=== PATIENT | female | born 1945 | race African-American/Black ===

== ENCOUNTER 2020-10-30 22:35 | Inpatient (IN) | payer OTHER ==
[~2020-10-30] VITALS: Ht 157.5 cm; Wt 57.0 kg
[2020-10-30] MEDS ORDERED: SODIUM CHLORIDE 0.9% 1,000 ML IV ONE (23:00)
[2020-10-30 23:40] LABS: Hemoglobin 12.8 g/dL (12.2-16.2); Mean Corpuscular Hemoglobin 30.3 pg (28.0-32.0); Nucleated Red Blood Cells % 0.1 %
[2020-10-30 23:43] LABS: Basophils # (auto) 0.1 10 ^3/uL (0-0.2); Basophils % (auto) 1.2 % (0.0-2.0); Eosinophils # (auto) 0.1 10 ^3/uL (0-0.8); Eosinophils % (auto) 0.6 % (0.0-7.0); Hematocrit 37.9 % (36.0-46.0); Lymphocytes # (auto) 2.4 10 ^3/uL (0.4-5.4); Lymphocytes % (auto) 24.3 % (10.0-50.0); Mean Corpuscular Hgb Conc. 33.7 g/dL (32.0-36.0); Mean Corpuscular Volume 89.8 fL (80.0-100.0); Monocytes # (auto) 0.6 10 ^3/uL (0-1.3); Monocytes % (auto) 5.9 % (0.0-12.0); Neutrophils # (auto) 6.7 10 ^3/uL (1.6-8.6); Red Blood Cells 4.22 10^6/uL (4.0-5.20); Red Cell Distribution Width 14.8 % (11.8-14.3); White Blood Cell 9.8 10^3/uL (4.4-10.8)
[2020-10-30 23:51] LABS: Albumin 3.3 g/dL (3.4-5.0); BUN/Creatinine Ratio 14.8; Calcium 8.9 mg/dL (8.5-10.1); Magnesium 2.7 mg/dL (1.6-2.6)
[2020-10-30 23:53] LABS: Bilirubin, Total 0.5 mg/dL (0.2-1.0); Total Protein 7.1 g/dL (6.4-8.2)
[2020-10-31 00:39] LABS: Urine Bacteria NONE SEEN /hpf (None Seen); Urine Blood Negative /uL (Negative); Urine Hyaline Cast MOD /lpf (0 - 2); Urine Mucus FEW (None Seen); Urine Specific Gravity 1.019 (1.001-1.035); Urine WBC 4 /hpf (0 - 5)
[2020-10-31] MEDS ORDERED: cloNIDine HCL 0.1 MG TAB PO PRN (05:00)
[2020-10-31] MEDS ORDERED: ACETAMINOPHEN 325 MG TAB PO PRN (05:00)
[2020-10-31] MEDS ORDERED: ONDANSETRON HCL 4 MG/2 ML VIAL IV PRN (05:00)
[2020-10-31] MEDS ORDERED: amLODIPine BESYLATE 5 MG TAB PO SCH (10:00)
[2020-10-31] MEDS ORDERED: HCTZ 25 MG TAB PO SCH (10:00)
[2020-10-31] MEDS: CLOPIDOGREL BISULFATE 75 MG TAB PO SCH (10:17)
[2020-10-31] MEDS: PANTOPRAZOLE 40 MG TAB PO SCH (10:17)
[2020-10-31 16:19] VITALS: BP 107/73
[2020-10-31] MEDS ORDERED: LISI20TA28 PO (16:52)
[2020-10-31] MEDS ORDERED: ASPI-325 PO (16:52)
[2020-10-31] MEDS ORDERED: ATOR-47 PO (16:52)
[2020-10-31 21:49] VITALS: BP 115/63
[2020-10-31] MEDS ORDERED: ATORVASTATIN 20 MG TAB PO SCH (22:00)
[2020-11-01 05:30] VITALS: BP 92/52
[2020-11-01 05:41] VITALS: BP 110/60
[2020-11-01 06:43] LABS: Basophils # (auto) 0.1 10 ^3/uL (0-0.2); Basophils % (auto) 0.5 % (0.0-2.0); Eosinophils # (auto) 0.1 10 ^3/uL (0-0.8); Eosinophils % (auto) 0.9 % (0.0-7.0); Hematocrit 34.5 % (36.0-46.0); Hemoglobin 11.9 g/dL (12.2-16.2); Lymphocytes # (auto) 2.1 10 ^3/uL (0.4-5.4); Lymphocytes % (auto) 18.3 % (10.0-50.0); Mean Corpuscular Hemoglobin 30.5 pg (28.0-32.0); Mean Corpuscular Hgb Conc. 34.6 g/dL (32.0-36.0); Mean Corpuscular Volume 88.1 fL (80.0-100.0); Monocytes # (auto) 0.8 10 ^3/uL (0-1.3); Monocytes % (auto) 6.8 % (0.0-12.0); Neutrophils # (auto) 8.5 10 ^3/uL (1.6-8.6); Neutrophils % (auto) 73.5 % (37.0-80.0); Nucleated Red Blood Cells % 0.1 %; Red Blood Cells 3.91 10^6/uL (4.0-5.20); Red Cell Distribution Width 14.8 % (11.8-14.3); White Blood Cell 11.6 10^3/uL (4.4-10.8)
[2020-11-01 06:55] LABS: Albumin 3.1 g/dL (3.4-5.0); BUN/Creatinine Ratio 18.8; Calcium 9.3 mg/dL (8.5-10.1)
[2020-11-01 06:58] LABS: Total Protein 6.5 g/dL (6.4-8.2)
[2020-11-01 08:20] VITALS: BP 85/49
[2020-11-01 09:00] VITALS: BP 85/49
[2020-11-01] MEDS ORDERED: amLODIPine BESYLATE 5 MG TAB PO SCH (10:00)
[2020-11-01] MEDS ORDERED: POTASSIUM CHL 20 Meq TABLET PO ONE (10:00)
[2020-11-01] MEDS: PANTOPRAZOLE 40 MG TAB PO SCH (11:02)
[2020-11-01] MEDS: CLOPIDOGREL BISULFATE 75 MG TAB PO SCH (11:02)
[2020-11-01] MEDS: LACTATED RINGER'S 1,000 ML IV SCH ×2 (11:09→23:20)
[2020-11-01 17:00] VITALS: BP 99/61
[2020-11-01] MEDS ORDERED: ACETAMINOPHEN 325 MG TAB PO PRN (17:45)
[2020-11-01 22:00] VITALS: BP 99/62
[2020-11-02 05:30] VITALS: BP 91/57
[2020-11-02 06:35] LABS: Calcium 8.7 mg/dL (8.5-10.1); Potassium 3.4 mmol/L (3.5-5.1)
[2020-11-02 08:30] VITALS: BP 82/56
[2020-11-02] MEDS: CLOPIDOGREL BISULFATE 75 MG TAB PO SCH (10:16)
[2020-11-02] MEDS: PANTOPRAZOLE 40 MG TAB PO SCH (10:16)
[2020-11-02] MEDS ORDERED: POTASSIUM CHL 20 Meq TABLET PO ONE (10:30)
[2020-11-02 11:47] VITALS: BP 93/53
[2020-11-02 12:30] VITALS: BP 93/53
[2020-11-02] MEDS: LACTATED RINGER'S 1,000 ML IV SCH (12:40)
== END 2020-11-02 14:59 | disposition home or self-care (01) | DRG 314 ==
LOC: ER 22:35 → EDBD 22:35 → EAST 10-31 04:55
PROVIDERS: ADMIT Nurse Practitioner; ATTEND Internal Medicine Geriatric Medicine
DX: I95.9 Hypotension, unspecified (principal); N17.0 Acute kidney failure with tubular necrosis; I69.354 Hemiplegia and hemiparesis following cerebral infarction affecting left non-dominant side; E86.0 Dehydration; E87.8 Other disorders of electrolyte and fluid balance, not elsewhere classified; I10 Essential (primary) hypertension; K59.00 Constipation, unspecified; N28.1 Cyst of kidney, acquired; E87.6 Hypokalemia; E78.5 Hyperlipidemia, unspecified; K80.20 Calculus of gallbladder without cholecystitis without obstruction; Z20.822 Contact with and (suspected) exposure to COVID-19; Z82.49 Family history of ischemic heart disease and other diseases of the circulatory system; Z79.82 Long term (current) use of aspirin; Z79.899 Other long term (current) drug therapy
CPT/HCPCS: 36415; 71045; 76775; 80048; 80053; 81001; 82962; 83735; 85025; 87081; 87086; 87426; 93005; 96360; 97163; G0378